=== PATIENT | male | born 1970 | race Caucasian/White ===

== ENCOUNTER 2020-12-16 19:40 | Emergency (ER) | payer OTHER ==
[~2020-12-16] VITALS: Ht 180.3 cm; Wt 121.8 kg
--- NOTE | 2020-12-16 20:04 | PHYS DOC ---
General Adult EDM: Chief Complaint: OTHER COMPLAINTS HPI: HPI: ".. I got this hole at top of my butt crack.. it had some drainage..it stopped now.. I just wanted it checked..." Patient is a 50 year old male who presents with above hx and lesion at top gluteal crease. No fever, chills, no adenopathy but has an inflamed area at the top of the gluteal crease. Patient denies any history of trauma. Patient denies any history recent travel. No specific ill contacts. No history immunosuppression. Normally follows with Dr. Mensah. Review of Systems: Review of Systems: Constitutional: Denies fever or chills Eyes: Denies change in visual acuity HENT: Denies nasal congestion or sore throat Respiratory: Denies cough or shortness of breath Cardiovascular: Denies chest pain or edema GI: Denies abdominal pain, nausea, vomiting, bloody stools or diarrhea : Denies dysuria Musculoskeletal: Denies back pain or joint pain Integument: Complains of lesion on top of gluteal crease Neurologic: Denies headache, focal weakness or sensory changes Endocrine: Denies polyuria or polydipsia Lymphatic: Denies swollen glands Psychiatric: Denies depression or anxiety Family History: Family History: Noncontributory presentation Current Medications: Current Meds: See nursing for home meds Allergies: Allergies: Allergic to Keflex and dulaglutide Physical Exam: PE: Constitutional: Well developed, well nourished, no acute distress, non-toxic appearance. [] HENT: Normocephalic, atraumatic, bilateral external ears normal, oropharynx moist, no oral exudates, nose normal. [] Eyes: PERRLA, EOMI, conjunctiva normal, no discharge. [] Neck: Normal range of motion, no tenderness, supple, no stridor. [] Cardiovascular:Heart rate regular rhythm, no murmur [] Lungs & Thorax: Bilateral breath sounds clear to auscultation [] Abdomen: Bowel sounds normal, soft, no tenderness, no masses, no pulsatile masses. [] Skin: Warm, dry, no erythema, no rash. [] Back: No tenderness, no CVA tenderness. [] Extremities: No tenderness, no cyanosis, no clubbing, ROM intact, no edema. [] Neurologic: Alert and oriented X 3, normal motor function, normal sensory function, no focal deficits noted. [] Psychologic: Affect normal, judgement normal, mood normal. [] EKG: EKG: [] Radiology/Procedures: Radiology/Procedures: [] Heart Score: C/O Chest Pain: N/A Risk Factors: Risk Factors: DM, Current or recent (<one month) smoker, HTN, HLP, family history of CAD, obesity. Risk Scores: Score 0 - 3: 2.5% MACE over next 6 weeks - Discharge Home Score 4 - 6: 20.3% MACE over next 6 weeks - Admit for Clinical Observation Score 7 - 10: 72.7% MACE over next 6 weeks - Early Invasive Strategies Course & Med Decision Making: Course & Med Decision Making Pertinent Labs and Imaging studies reviewed. (See chart for details) Patient use warm moist compresses with salt water and Epson salts 4 times a day. Take Bactrim DS twice a day. Follow-up primary care. Return if any concerns. Impression: 1. Localized cellulitis to top of gluteal crease [] Dragon Disclaimer: Dragon Disclaimer: This electronic medical record was generated, in whole or in part, using a voice recognition dictation system. Departure Departure: Referrals: BLAYNE MENSAH (PCP) Scripts Sulfamethoxazole/Trimethoprim (BACTRIM DS TABLET) 1 Each Tablet 1 TAB PO BID for cyst for 10 Days, #20 TAB 0 Refills Prov: CORA HERNANDEZ MD 12/16/20 Micheal Disclaimer This chart was dictated in whole or in part using Voice Recognition software in a busy, high-work load, and often noisy Emergency Department environment. It may contain unintended and wholly unrecognized errors or omissions. CORA HERNANDEZ MD Dec 16, 2020 20:04
[2020-12-16] MEDS ORDERED: SMZ/TMP 800/160MG TABLET. PO ONE (20:15)
[2020-12-16] MEDS ORDERED: SULF1TAB24 PO (20:22)
[2020-12-17 20:45] VITALS: BP 176/96
== END 2020-12-16 20:53 | disposition home or self-care (01) ==
LOC: ER 19:40
DX: L03.317 Cellulitis of buttock (principal); Z88.8 Allergy status to other drugs, medicaments and biological substances
CPT/HCPCS: 99283

== ENCOUNTER 2021-03-08 09:23 | Emergency (ER) | payer OTHER ==
[~2021-03-08] VITALS: Ht 180.3 cm; Wt 121.8 kg
[2021-03-08 09:23] VITALS: BP 146/114
[~2021-03-08 09:23] MED LIST: SULF1TAB24 PO
[2021-03-08] MEDS ORDERED: IV NORMAL SALINE 1,000ML 1,000 ML IV ONE (09:45)
--- NOTE | 2021-03-08 09:46 | PHYS DOC ---
Past History Past Medical History: Other Additional Past Medical Histor: skin cancer Past Surgical History: No Surgical History Alcohol Use: Rarely Adult General Chief Complaint Chief Complaint: HYPERGLYCEMIA HPI HPI Patient is a 50-year-old patient is a 50-year-old male presenting via EMS for high blood sugar. This is an acute on chronic issue. He is a known uncontrolled type 2 insulin-dependent diabetic with last A1c 12.4%. Reports he has been taking all outpatient medications as scheduled but admits he ran out of both his Lantus and Humalog insulin the past 4 days. States he got these filled yesterday afternoon but forgot them at the [employer] where he works and subsequently did not have them. 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 Physical exertion and specifically changes in body position make worse, nothing known makes better. He denies being in any pain. Timing of symptoms has been constant since he woke up this morning. He has numerous other comorbid conditions such as high blood pressure, high cholesterol, prior heart attack and morbid obesity. Denies any fever, vision changes, chest pain, ripping or tearing sensation in chest, shortness of breath, cough, abdominal pain, nausea vomit diarrhea, bladder or bowel incontinence. He has been vaccinated against COVID-19 Review of Systems Review of Systems Fourteen body systems of review of systems have been reviewed. See HPI for pertinent positives and negative responses, other [place] all other systems are negative, non-pertinent or non-contributory Allergies Allergies Allergies Coded Allergies Type Severity Reaction Last Updated Verified cephalexin Allergy Unknown 12/16/20 Yes dulaglutide Allergy Unknown 12/16/20 Yes Physical Exam Physical Exam Constitutional: Well developed, well nourished, no acute distress, non-toxic appearance. HENT: Normocephalic, atraumatic, bilateral external ears normal, oropharynx moist, no oral exudates, nose normal. Eyes: PERRLA, EOMI, conjunctiva normal, no discharge. Neck: Normal range of motion, no tenderness, supple, no stridor. Cardiovascular: Heart rate regular, sinus rhythm, no murmurs rubs or gallops Lungs & Thorax: Bilateral breath sounds clear to auscultation Abdomen: Bowel sounds normal, soft, no tenderness, no masses, no pulsatile masses. Nonsurgical abdomen, no peritoneal signs Skin: Warm, dry, no erythema, no rash. Back: No tenderness, no CVA tenderness. Extremities: No tenderness, no cyanosis, no clubbing, ROM intact, no edema. Neurologic: Alert and oriented X 3, grossly normal motor & sensory function, no focal deficits noted. Psychologic: Affect normal, judgement normal, mood normal. Current Patient Data Lab Results Laboratory Tests Test 03/08/21 09:31 03/08/21 09:34 Glucose (Fingerstick) 411 mg/dL White Blood Count 8.4 x10^3/uL Red Blood Count 5.20 x10^6/uL Hemoglobin 16.5 g/dL Hematocrit 48.0 % Mean Corpuscular Volume 92 fL Mean Corpuscular Hemoglobin 32 pg Mean Corpuscular Hemoglobin Concent 34 g/dL Red Cell Distribution Width 13.7 % Platelet Count 180 x10^3/uL Neutrophils (%) (Auto) 68 % Lymphocytes (%) (Auto) 24 % Monocytes (%) (Auto) 5 % Eosinophils (%) (Auto) 3 % Basophils (%) (Auto) 1 % Neutrophils # (Auto) 5.7 x10^3uL Lymphocytes # (Auto) 2.0 x10^3/uL Monocytes # (Auto) 0.4 x10^3/uL Eosinophils # (Auto) 0.2 x10^3/uL Basophils # (Auto) 0.1 x10^3/uL Sodium Level 135 mmol/L Potassium Level 4.7 mmol/L Chloride Level 100 mmol/L Carbon Dioxide Level 26 mmol/L Anion Gap 9 Blood Urea Nitrogen 10 mg/dL Creatinine 0.9 mg/dL Estimated GFR (Cockcroft-Gault) 89.0 BUN/Creatinine Ratio 11 Glucose Level 391 mg/dL Calcium Level 8.7 mg/dL Total Bilirubin 0.3 mg/dL Aspartate Amino Transf (AST/SGOT) 10 U/L Alanine Aminotransferase (ALT/SGPT) 27 U/L Alkaline Phosphatase 105 U/L Troponin I Quantitative < 0.017 ng/mL Total Protein 7.1 g/dL Albumin 3.7 g/dL Albumin/Globulin Ratio 1.1 Current Medications Medications (Trade) Dose Ordered Sig/Navid Route PRN Reason Start Time Stop Time Status Last Admin Dose Admin Sodium Chloride 1,000 ml @ 1,000 mls/hr 1X ONCE IV 03/08/21 09:45 8/29/21 10:44 DC 03/08/21 10:12 Insulin Human Regular (HumuLIN R VIAL) 10 unit 1X ONCE IV 03/08/21 10:30 03/08/21 10:40 DC 03/08/21 11:12 Laboratory Tests Test 03/08/21 09:31 Glucose (Fingerstick) 411 mg/dL (70-99) H EKG EKG EKG ordered and interpreted by myself at 1006 hrs. as sinus rhythm at 86 bpm, unremarkable intervals, no axis deviation, no STEMI Radiology/Procedures Radiology/Procedures EXAM: CHEST 1 VIEW History: Dizziness COMPARISON: None available. TECHNIQUE: Single portable radiograph of the chest FINDINGS: The cardiac silhouette is unremarkable. The lungs are clear bilaterally. The costophrenic sulci are clear and well demarcated. IMPRESSION: No radiographic evidence of an acute cardiopulmonary process. Electronically signed by: Harry Schwartz MD (03/08/2021 10:09 AM) [id number] Heart Score C/O Chest Pain: No HEART Score for Chest Pain: HEART Score for Chest Pain Response (Comments) Value History Slighlty/Non-Suspicious 0 ECG Nonspecific Repolarizatio 1 Age >45 - < 65 1 Risk Factors >3 Risk Factors or Hx CAD 2 Troponin < Normal Limit 0 Total 4 Risk Factors: Risk Factors: DM, Current or recent (<one month) smoker, HTN, HLP, family history of CAD, obesity. Risk Scores: Risk Factors: DM, Current or recent (<one month) smoker, HTN, HLP, family history of CAD, obesity. Course & Med Decision Making Course & Med Decision Making ABCs unremarkable. I disclosed entirety of ER findings and discussed most likely diagnosis of symptomatic hyperglycemia and dehydration. Other diagnoses were discussed with patient such as ACS, stroke and other emergent and/or surgical diagnoses but all deemed less likely causes of patient's presentation. Patient symptoms improved with IV fluid rehydration and IV insulin use. Patient knowledgeable that he needs to check his fingerstick blood glucose more frequently than usual today given recent administration of IV insulin and use of Lantus in the morning which is not typical for him, he admits he has the means to do this and has sufficient supplies at home. He has good access to care with primary care physician and can get seen this week, as such, plan of care discussed at length with need for close outpatient follow-up to review today's ER visit stressed. Strict return precautions were also discussed at length with good understanding by patient. Patient voiced understanding and agreement with the plan. Patient knows to come back for repeat evaluation if concerning signs or symptoms present prior to outpatient follow-up. Hemodynamically stable, ambulatory and well-appearing at time of disposition. Dragon Disclaimer Dragon Disclaimer This electronic medical record was generated, in whole or in part, using a voice recognition dictation system. Departure Departure: Impression: Primary Impression: Uncontrolled type 2 diabetes mellitus with hyperglycemia, with long-term current use of insulin Additional Impression: Dizziness Disposition: HOME / SELF CARE / HOMELESS Condition: IMPROVED Referrals: BLAYNE MENSAH (PCP) Patient Instructions: Hyperglycemia Additional Instructions: You were seen for hyperglycemia. Please continue taking your insulin/diabetes medications as prescribed and follow up with your primary care doctor as soon as possible. It is important for good glycemic control to reduce the risks of acute and chronic medical problems. Return to the ED if you develop any abdominal pain, vomiting, cough, chest pain, fever, or any other new or concerning symptoms. Problem Qualifiers HONORIO CALDERON DO Mar 08, 2021 09:46
[2021-03-08 09:58] LABS: BASO # 0.1 x10^3/uL (0.0-0.2); BASO % 1 % (0-3); EOS # 0.2 x10^3/uL (0.0-0.7); EOS % 3 % (0-3); HEMOGLOBIN 16.5 g/dL (13.0-17.5); LYMPH % 24 % (24-48); MEAN CORPUSCULAR HEMOGLOBIN 32 pg (25-35); MEAN CORPUSCULAR HGB CONC 34 g/dL (31-37); MEAN CORPUSCULAR VOLUME 92 fL (79-100); MONO # 0.4 x10^3/uL (0.0-1.1); MONO % 5 % (0-9); NEUT # 5.7 x10^3uL (1.8-7.7); NEUT % 68 % (31-73); PLATELET COUNT 180 x10^3/uL (140-400); RED CELL DISTRIBUTION WIDTH 13.7 % (11.5-14.5); WHITE BLOOD COUNT 8.4 x10^3/uL (4.0-11.0)
[2021-03-08 10:05] LABS: CALCIUM 8.7 mg/dL (8.5-10.1); CREATININE 0.9 mg/dL (0.7-1.3); POTASSIUM 4.7 mmol/L (3.5-5.1)
[2021-03-08 10:11] LABS: ALBUMIN 3.7 g/dL (3.4-5.0); ALBUMIN/GLOBULIN RATIO 1.1 (1.0-1.7); TOTAL BILIRUBIN 0.3 mg/dL (0.2-1.0); TOTAL PROTEIN 7.1 g/dL (6.4-8.2)
--- NOTE | 2021-03-08 10:11 | RAD ---
EXAM: CHEST 1 VIEW History: Dizziness COMPARISON: None available. TECHNIQUE: Single portable radiograph of the chest FINDINGS: The cardiac silhouette is unremarkable. The lungs are clear bilaterally. The costophrenic sulci are clear and well demarcated. IMPRESSION: No radiographic evidence of an acute cardiopulmonary process. Electronically signed by: Harry Schwartz MD (03/08/2021 10:09 AM) [id number]
[2021-03-08] MEDS ORDERED: INSULIN REGULAR 100 UNIT/ML 3ML VIAL. IV ONE (10:30)
--- NOTE | 2021-03-08 11:05 | EKG ---
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
--- NOTE | 2021-03-08 11:06 | EKG ---
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
== END 2021-03-08 11:28 | disposition home or self-care (01) ==
LOC: ER 09:23
DX: E11.65 Type 2 diabetes mellitus with hyperglycemia (principal); R42 Dizziness and giddiness; I10 Essential (primary) hypertension; E78.00 Pure hypercholesterolemia, unspecified; E66.01 Morbid (severe) obesity due to excess calories; Z79.4 Long term (current) use of insulin; Z68.37 Body mass index [BMI] 37.0-37.9, adult
CPT/HCPCS: 36415; 71045; 80053; 82947; 84484; 85025; 93005; 96361; 96374; 99285; J1815; J7030